=== PATIENT | male | born 1970 | race Hispanic/Latino ===

== ENCOUNTER 2025-06-09 10:34 | Outpatient (CLI) | payer BC ==
[2025-06-09] MEDS ORDERED: Barium Sulfate 96% 176 GM BOT (xray ONLY) ONE (10:54)
[2025-06-09] MEDS ORDERED: E-Z-HD 98% W/W 340GM BOT (x-ray ONLY) ONE (10:54)
[2025-06-09] MEDS ORDERED: Iopamidol 370 76% 100 ML VIAL ONE (15:33)
== END 2025-06-09 10:35 | disposition home or self-care (01) ==
LOC: RAD 10:34
PROVIDERS: ATTEND Otolaryngology Plastic Surgery within the Head & Neck
DX: J38.01 Paralysis of vocal cords and larynx, unilateral (principal); R13.19 Other dysphagia; K44.9 Diaphragmatic hernia without obstruction or gangrene; R91.8 Other nonspecific abnormal finding of lung field
CPT/HCPCS: 70491; 71260; 74220